=== PATIENT | female | born 1995 | race Two or more races ===

== ENCOUNTER 2024-07-27 08:57 | Emergency (ER) | payer MEDICAID, OTHER ==
[~2024-07-27] VITALS: Ht 157.5 cm; Wt 52.2 kg
[2024-07-27 09:41] VITALS: BP 140/68; PULSE 75; RESP 16; TEMP 99.7; O2SAT 100
[2024-07-27] MEDS ORDERED: NAPR-746 PO (10:15)
[2024-07-27] MEDS ORDERED: METH4PAK PO (10:15)
--- NOTE | 2024-07-27 10:15 | ED.PDOC ---
Back pain HPI HPI Comments 29 year old F presents for atraumatic left neck pain x 1 day while sleeping. No other complaints. Chief Complaint: Neck Pain Time Seen by MD: 09:28 Primary Care Provider: dipesh Townsend Notes: Nurses Notes, Medications, Allergies Allergies: Coded Allergies: NO KNOWN ALLERGIES (Unverified , 07/27/24) Home Meds Active Scripts Naproxen (Naproxen) 500 Mg Tab, 500 MG PO BIDPC for 7 Days, #14 TAB 0 Refills Prov:APOLINAR PUENTES [employer] 07/27/24 Methylprednisolone (Medrol Dosepak) 4 Mg [place], 4 MG PO UD for 7 Days, #21 TAB 0 Refills UAD Prov:APOLINAR PUENTES [employer] 07/27/24 Information Source: Patient Mode of Arrival: Ambulatory Family History Family History: Reviewed,noncontributory to illness Social History Smoker: Non-Smoker Alcohol: Denies ETOH Use Drugs: Denies Drug Use All Other Systems: Reviewed and Negative (Per HPI) Physical Exam General Appearance: No Apparent Distress, Normal HEENT: Normal ENT Inspection, Pharynx Normal, TMs Normal Neck: Full Range of Motion, Non-Tender, Normal, Normal Inspection Respiratory: Chest Non-Tender, Lungs Clear, No Accessory Muscle Use, No Respiratory Distress, Normal Breath Sounds Cardiovascular: No Edema, No JVD, No Murmur, No Gallop, Normal Peripheral Pulses, Regular Rate/Rhythm Breast Exam: Deferred Gastrointestinal: No Organomegaly, Non Tender, No Pulsatile Mass, Normal Bowel Sounds, Soft Genitalia: Deferred Pelvic: Deferred Rectal: Deferred Extremities: No calf tenderness, Normal capillary refill, Normal inspection, Normal range of motion, Non-tender, No pedal edema Musculoskeletal : Apperance: Normal Neurologic: Alert, No Motor Deficits, Normal Affect, Normal Mood, No Sensory Deficits Cerebellar Function: Normal Reflexes: Normal Skin: Dry, Normal Color, Warm Lymphatic: No Adenopathy Was a procedure done? Was a procedure done?: No Back Pain Differential Dx Differential Diagnosis: Musculoskeletal Pain, Strain X-Ray, Labs, Meds, VS Vital Signs Date Time Temp Pulse Resp B/P (MAP) Pulse Ox O2 Delivery O2 Flow Rate FiO2 07/27/24 09:41 99.7 75 16 140/68 (92) 100 99.7 07/27/24 09:41 75 16 100 Room Air 07/27/24 09:19 99.7 75 16 140/68 (92) 100 Current Medications Medications (Trade) Dose Ordered Sig/James Route Start Time Stop Time Status Last Admin Acetaminophen/ Hydrocodone Bitart ([place] 7.5/325MG Tab) 1 tab ONCE ONCE PO 07/27/24 10:15 07/27/24 10:16 DC 07/27/24 10:25 Ketorolac Tromethamine (Toradol Injection) 30 mg ONCE ONCE IM 07/27/24 10:15 07/27/24 10:16 DC 07/27/24 10:26 X-Ray, Labs, Meds, VS Comment Supportive care advised (rest, ice, heat, NSAIDs, stretching exercises) Massage muscles with cold pack or ice for 20 minutes 4 times per day. Usually most useful if there is swelling during the first 48 hours Heating pad on the most painful area for 20 minutes to relieve muscle spasm Sleep and the most comfortable sleeping position (usually on the side with knees bent) Light stretching, no strenuous activity, avoid frequent bending, avoid carrying heavy objects Discussed possible benefits of yoga and acupuncture Patient is stable for discharge at this time. External notes reviewed. Test results and diagnostic imaging interpreted. All diagnostic findings, discharge care, education and instructions provided Follow-up with PCP in 2 to 3 days Patient verbalized understanding and agreed to treatment plan Vital signs stable, afebrile, no acute distress noted Patient ambulatory with strong steady gait Advised to return precautions for any new or worsening symptoms, return to ER immediately for re-evaluation Patient is aware that the purpose of this visit was for an acute medical emergency requiring emergent stabilization. Chronic conditions, including malignancies have not been ruled out. Patient is instructed to follow up with PCP as directed and discharge instructions for continued care and workup. If unable to arrange follow-up, patient is to return to the emergency department for reassessment. Patient (parent or legal guardian if applicable) was given verbal and written discharge instructions and acknowledges understanding. Time of 1ST Reevaluation: 11:00 Reevaluation 1ST: Improved Patient Education/Counseling: Diagnosis, Treatment Family Education/Counseling: Diagnosis, Treatment Departure 1 Departure Time of Disposition: 11:21 Impression: Primary Impression: Cervicalgia Disposition: 01 HOME / SELF CARE / HOMELESS Condition: Stable e-Prescriptions Naproxen (Naproxen) 500 Mg Tab 500 MG PO BIDPC for 7 Days, #14 TAB 0 Refills Prov: APOLINAR PUENTES NP 07/27/24 Methylprednisolone (Medrol Dosepak) 4 Mg [place] 4 MG PO UD for 7 Days, #21 TAB 0 Refills UAD Prov: APOLINAR PUENTES [employer] 07/27/24 Critical Care Note Critical Care Time?: No Stability Stability form required: No Heart Score Heart Score: Heart Score Response (Comments) Value History N/A 0 EKG N/A 0 Age N/A 0 Risk Factors N/A 0 Troponin N/A 0 Total 0 APOLINAR PUENTES [employer] Jul 27, 2024 10:15
[2024-07-27] MEDS: HYDROcodone-ACET 7.5/325MG TAB PO ONE (10:25)
[2024-07-27] MEDS: KETOROLAC TROMETH 30 MG/ML 1ML VIAL IM ONE (10:26)
== END 2024-07-27 11:41 | disposition home or self-care (01) ==
LOC: ER 08:57
DX: M54.2 Cervicalgia (principal)
CPT/HCPCS: 96372; 99283; J1885